=== PATIENT | male | born 1995 | race Caucasian/White ===

== ENCOUNTER 2022-03-17 21:16 | Emergency (ER) | payer BC, SELFPAY ==
[2022-03-17] VITALS (15 sets, daily range): BP systolic 116–139; BP diastolic 71–80; PULSE 93; RESP 16; TEMP 36.9; O2SAT 95–100
--- NOTE | ~2022-03-17 | CT_ITS ---
EXAMINATION: CT soft tissue neck w con DATE: 03/17/2022 23:05 INDICATION: Tonsillar hypertrophy. TECHNIQUE: Computed tomography (CT) of the neck was performed with 75 mL Omnipaque-350 intravenous co ntrast. Automated exposure control and iterative reconstruction technique were employed. The dose-jarrett gth product was 615.12 mGy-cm. COMPARISON: None FINDINGS: The adenoids and palatine tonsils are enlarged. There is a 1.8 x 0.8 cm right peritonsillar abscess. The lingual tonsils are enlarged. There is bilateral submandibular and internal jugular garrett in lymphadenopathy. For example, a left high internal jugular chain node measures 2.1 x 1.6 cm. There is mass effect on the internal jugular veins, which are patent. The bones are unremarkable. IMPRESSION: 1. 1.8 x 0.8 cm right peritonsillar abscess. Enlarged adenoids and palatine and lingual tonsils. 2. Bilateral cervical lymphadenopathy. Reviewed, dictated and finalized at location A. [employer]
--- NOTE | ~2022-03-17 | CT_ITS ---
EXAMINATION: CT abdomen pelvis w con DATE: 03/17/2022 23:01 INDICATION: Left upper quadrant and epigastric abdominal pain. TECHNIQUE: Computed tomography (CT) of the abdomen and pelvis was performed with 100 mL Omnipaque 350 intravenous contrast. Automated exposure control and iterative reconstruction technique were employe d. The dose-length product was 638.43 mGy-cm. COMPARISON: None. FINDINGS: The visualized portions of the lung bases are clear without pneumonia or pleural effusion. The heart size is normal. No pericardial effusion. The liver and gallbladder are normal. There is mod erate splenomegaly. The pancreas, adrenal glands, and kidneys are normal. There are no dilated loops of bowel. The appendix is normal. There is mild periportal lymphadenopathy. There is trace pelvic asc ites. There is mild lumbar spondylosis. IMPRESSION: 1. Moderate splenomegaly. 2. Mild periportal lymphadenopathy. Reviewed, dictated and finalized at location A. [employer]
[2022-03-17 21:49] LABS: Basophils Absolute Auto 0.2 K/mm3 (0.0-0.1); Basophils Percent Auto 1.6 % (0.2-1.2); Eosinophils Percent Auto 0.2 % (0-4.4); Hematocrit 40.8 % (42.0-52.0); Immature Granulocyte Absolute 0.08 K/mm3 (0.00-0.031); Immature Granulocyte Percent A 0.6 % (0-0.5); Lymphocytes Absolute Auto 10.27 K/mm3 (0.9-3.2); Lymphocytes Percent Auto 71.6 % (18.3-44.2); Mean Corpuscular HGB Conc 34.3 g/dl (32-36); Mean Corpuscular Volume 90.3 fl (80-100); Mean Platelet Volume 10.8 fl (7.4-10.4); Neutrophils Absolute Auto 1.7 K/mm3 (1.3-6.7); Nucleated Red Blood Cells Perc 0.2 % (0.0-0.2); Platelet Count Result 150 k/mm3 (150-375); Red Blood Count 4.52 M/mm3 (4.6-6.20); Red Cell Distribution Width 13.2 % (11.5-14.5); White Blood Count 14.3 K/mm3 (4.5-10.0)
[2022-03-17 21:56] LABS: Appearance Urine Clear (Clear); Bilirubin Urine 2+ (Negative); Blood Urine Negative (Negative); Color Urine Yellow (Yellow); Glucose Urine UA Negative (Negative); Ketones Urine Trace mg/dL (Negative); Leukocyte Esterase Ur Negative LEU/UL (Negative); Nitrate Urine Negative (Negative); Protein Urine 1+ mg/dL (Negative); Specific Grav Ur 1.015 (1.001-1.035)
[2022-03-17 22:03] LABS: Alanine Aminotransferase 510 U/L (6-50); Albumin Level 3.5 g/dL (3.5-5.1); Alkaline Phosphatase 509 U/L (38-126); Anion Gap 8 mmol/L (8-16); Aspartate Amino Transferase 378 U/L (17-59); Bilirubin,Total 3.3 mg/dL (0.2-1.3); Blood Urea Nitrogen 7 mg/dL (9-20); Calcium 8.2 mg/dL (8.4-10.2); Carbon Dioxide 25 mmol/L (22-30); Chloride 105 mmol/L (98-107); Estimated CRCL calculation 133 ml/min; Estimated Glomerular Filt Rate > 60; Glucose 106 mg/dL (65-110); Lipase 45 U/L (23-300); Potassium 3.8 mmol/L (3.4-5.0); Sodium 138 mmol/L (137-145)
[2022-03-17 22:06] LABS: Atypical Lymphocytes Present; Platelet Estimate Adequate (Adequate); Schistocytes None Seen (NORMAL)
[2022-03-17 22:14] LABS: Bacteria Urine Trace /hpf; Mucus Urine Rare /lpf; RBC Urine 0-2 /hpf (0-2); Squamous Epithelial Cell Urine Rare /hpf (Few)
[2022-03-17 22:16] LABS: Add Urine Microscopic? YES
--- NOTE | 2022-03-17 22:54 | ED.ABDPAIN ---
HPI - Abdominal Pain General Chief Complaint: Abdominal Pain <REYMUNDO Ewing Last Filed: 03/18/22 04:31> Stated Complaint: abdominal pain <REYMUNDO Ewing Last Filed: 03/18/22 04:31> Time Seen by Provider: 03/17/22 21:33 <REYMUNDO Ewing Last Filed: 03/18/22 04:31> Source: patient <REYMUNDO Ewing Last Filed: 03/18/22 04:31> Mode of arrival: ambulatory <REYMUNDO Ewing Last Filed: 03/18/22 04:31> Limitations: no limitations <REYMUNDO Ewing Last Filed: 03/18/22 04:31> History of Present Illness HPI narrative: Patient is a 26-year-old male who presents to the ED with report of left upper abdominal pain. Patient reports he was diagnosed with mononucleosis yesterday at an outside urgent care. He was tested negative for strep and is not currently on any antibiotics. He does report having significant sore throat, mild difficulty swallowing due to tonsillar swelling. Today around 6 PM, he developed left upper quadrant abdominal pain. He states the pain was intermittent at first, but has since become more severe and persistent. He took Tylenol at 6 PM but has not had anything since. He also reports having nausea, but denies vomiting, diarrhea, constipation, fevers today, urinary symptoms. <REYMUNDO Ewing Last Filed: 03/18/22 04:31> Related Data Allergies/Adverse Reactions: Allergies Allergy/AdvReac Type Severity Reaction Status Date / Time No Known Allergies Allergy Verified 03/18/22 01:06 <REYMUNDO Ewing Last Filed: 03/18/22 04:31> Review of Systems Review of Systems: CONSTITUTIONAL: Denies fever, chills, or sweats. ENT: See HPI. CARDIOVASCULAR: Denies chest pain. RESPIRATORY: Denies dyspnea. GASTROINTESTINAL: See HPI. GENITOURINARY: Denies dysuria or hematuria. <REYMUNDO Ewing Last Filed: 03/18/22 04:31> All systems reviewed & are unremarkable except as noted in HPI and below <Kerri Martinez PA-C - Last Filed: 03/18/22 04:31> PMFSH Past Medical History Medical History: Medical History (Updated 03/18/22 @ 01:12 by Kerri Martinez PA-C) Mononucleosis <Kerri Martinez PA-C - Last Filed: 03/18/22 04:31> Surgical History Surgical History: Surgical History (Updated 03/17/22 @ 23:07 by Kerri Martinez PA-C) No pertinent past surgical history <Kerri Martinez PA-C - Last Filed: 03/18/22 04:31> Social History Social History: Social History (Updated 03/17/22 @ 23:07 by Kerri Martinez PA-C) Smoking status: Never smoker <Kerri Martinez PA-C - Last Filed: 03/18/22 04:31> Exam Narrative: GENERAL: Well appearing, well-nourished, non-toxic, in no acute distress. HEAD: Normocephalic, atraumatic. EYES: PERRLA/EOMI, conjunctiva clear. ENT: Grade 4 tonsils, touching uvula bilaterally, some scattered exudate, posterior pharynx erythema. No significant asymmetric tonsillar swelling. Uvula does still appear midline. Patient tolerating secretions, but somewhat muffled hoarse voice. NECK: Supple. Anterior and posterior cervical lymphadenopathy, no masses. RESPIRATORY: Airway patent, respirations nonlabored. Clear to auscultation bilaterally, no rales, rhonchi, wheezing. CARDIOVASCULAR: Regular rate and rhythm without murmurs, rubs, or gallops. Peripheral pulses 2+ and equal bilaterally. ABDOMINAL: Soft, diffuse tenderness to palpation, worst in left upper quadrant, epigastric region, right lower quadrant, nondistended, no hepatosplenomegaly. Normoactive BS. MUSCULOSKELETAL: Moves all extremities. Strength/ROM intact without gross deformities. SKIN: Warm, dry, normal color. No rashes. NEURO: A&O X3. Speech clear. Cranial nerves II-XII grossly intact. Steady gait. No ataxic movements. PSYCHIATRIC: Appropriate mood and affect. Normal interaction. <Kerri Martinez PA-C - Last Filed: 03/18/22 04:3
--- NOTE | 2022-03-17 23:19 | PC.NURSE ---
Report received from NBA Rowell. Assumed care of patient at this time.
[2022-03-17] MEDS: MORPHINE SULFATE (*CRX) 4 MG/ML INJ IV PUSH (23:22)
[2022-03-17] MEDS: ONDANSETRON INJ 4 MG/2 ML VIAL IV PUSH (23:22)
[2022-03-17] MEDS: SODIUM CHLORIDE 0.9% IV 1,000 ML 999 ML IV CONT (23:22)
[2022-03-18] VITALS (26 sets, daily range): BP systolic 115–147; BP diastolic 66–81; PULSE 79–88; RESP 16–17; TEMP 36.6; O2SAT 94–99
[2022-03-18] MEDS: methylPREDNISolone SOD SUCC 125 MG VIAL IV PUSH (00:15)
[2022-03-18] MEDS: SODIUM CHLORIDE 0.9% IV 1,000 ML 999 ML IV CONT (00:16)
[2022-03-18] MEDS: AMPICILLIN SULB 3 GM/NS 100 ML 3 GM/100 ML VIAL IVPB (00:21)
[2022-03-18 00:51] LABS: Influenza A QL RT-PCR Negative (Negative); Influenza B QL RT-PCR Negative (Negative); SARS-CoV-2 RNA PCR Negative
--- NOTE | 2022-03-18 01:33 | PC.NURSE ---
Patient given mouth swab for his dry mouth. Patient instructed he must remain NPO. Patient verbalized understanding.
--- NOTE | 2022-03-18 03:49 | PC.NURSE ---
Patient informed of new ETA by [facility] instead of [facility]. Patient states he does feel that it is getting harder to swallow, ERP notified.
== END 2022-03-18 04:40 | disposition short-term general hospital (02) ==
PROVIDERS: Physician Assistant; Emergency Provider Emergency Medicine; PCP Nurse Practitioner Family
DX: J36 Peritonsillar abscess (principal); R16.1 Splenomegaly, not elsewhere classified; R74.01 Elevation of levels of liver transaminase levels; B27.90 Infectious mononucleosis, unspecified without complication; Z20.822 Contact with and (suspected) exposure to COVID-19
CPT/HCPCS: 36415; 70491; 74177; 80053; 81001; 83690; 85025; 87636; 96361; 96365; 96375; 99284; J0295; J2270; J2405; J2930; J7030; Q9967